=== PATIENT | male | born 2000 | race African-American/Black ===

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

== ENCOUNTER 2023-02-14 08:00 | Outpatient (CLI) | payer OTHER ==
--- NOTE | 2023-02-15 00:19 | XRAY Report ---
PROCEDURE: Ankle 3 View RT INDICATIONS: RIGHT ANKLE FRACTURE TECHNIQUE: 3 views of the ankle were acquired. COMPARISON: X-ray right ankle, 02/04/2023. FINDINGS: Bones: There is a fracture of the distal fibula, demonstrating increased displacement on the lateral view. Widening of distal tibiofibular syndesmosis. Ankle mortise is widened medially. No suspiciou s bony lesions. Soft tissues: Small tibiotalar joint effusion. Achilles tendon appears normal. IMPRESSION: 1. Distal fibular fracture with increased displacement. 2. Suspect distal tibiofibular syndesmotic tear. 3. Possible small fracture fragment arising from the lateral aspect of the distal tibia. Reviewed by: Brenda Ott MD on 02/15/2023 12:17 AM PDT Approved by: Brenda Ott MD on 02/15/2023 12:17 AM PDT Station ID: [id number]
--- NOTE | 2023-02-15 00:19 | XRAY Report ---
PROCEDURE: Tib/Fib RT INDICATIONS: RIGHT ANKLE FRACTURE TECHNIQUE: 2 views of the tibia and fibula were acquired. COMPARISON: X-ray right ankle, 02/04/2023. FINDINGS: Bones: There is a spiral fracture in the distal fibular. There is increase in displacement compared to last exam. No suspicious bony lesions. Soft tissues: No suspicious soft tissue calcifications or masses. IMPRESSION: 1. Increased displacement in distal fibular fracture. Reviewed by: Brenda Ott MD on 02/15/2023 12:18 AM PDT Approved by: Brenda Ott MD on 02/15/2023 12:18 AM PDT Station ID: [id number]
== END 2023-02-14 23:59 | disposition home or self-care (01) ==
LOC: DI.WOS 08:00
PROVIDERS: ATTEND Orthopaedic Surgery
DX: S82.831A Other fracture of upper and lower end of right fibula, initial encounter for closed fracture (principal)

== ENCOUNTER 2023-02-18 13:11 | Outpatient (CLI) | payer OTHER ==
--- NOTE | 2023-02-19 18:51 | CT Report ---
PROCEDURE: LOWER EXTREMITY WO - RT INDICATIONS: DISPLACED FRACTURE OF RIGHT FIBULA TECHNIQUE: Noncontrast 3-mm axial sections acquired from the distal tibial shaft to the talar dome, with coronal and sagittal reformats. For radiation dose reduction, the following was used: automated exposure c ontrol, adjustment of mA and/or kV according to patient size. COMPARISON: Ankle radiograph dated 02/14/2023. FINDINGS: Image quality: Excellent. Bones: Acute slightly comminuted oblique fracture involving distal fibular shaft extending to the le ger of tibiotalar joint is seen with dorsal displacement and up to 5 mm diastases at the distal fibul ar shaft fracture site. There is acute fracture involving posterior aspect of lateral malleolus poste rior lateral displacement of the fractured fragment best seen on series 2 image 162 and series 5 imag e 49. Small corticated calcifications are noted over dorsal aspect of tibiotalar joint suggestive of old avulsion injuries. No other fracture or dislocation is seen. Lateral tilting of talar dome in rel ation to distal tibial plafond is noted. Markedly widened medial ankle mortise is seen. Soft tissues: Significant soft tissue swelling and edema surrounding distal lower leg and right ankl e is seen. There is moderate amount of tibiotalar joint effusion, no definite calcified intra-articul ar loose bodies. Widened distal tibiofibular syndesmosis is seen and measures up to 5 mm in distance. No gross full-thickness extensor, flexor, peroneus tendon rupture. No full-thickness Achilles tendon rupture. Visualized plantar fascia is within normal limits. Impression: 1. Acute comminuted and slightly displaced distal fibular shaft fracture as above. 2. Acute slightly displaced fracture involving posterior medial cortex of medial malleolus. 3. Suggestion of old avulsion injuries involving dorsal aspect of talonavicular joint. No definite os teochondral injuries of talar dome. 4. Soft tissue swelling and edema surrounding distal lower leg and ankle joint. Moderate joint effusi on, no definite calcified loose bodies. 5. Lateral tilting of talar dome in relation to the distal tibial plafond with widened medial ankle m ortise and widened distal tibiofibular syndesmosis suggestive of ankle ligament injuries. 6. No gross full-thickness ankle tendon rupture. Reviewed by: Jed Hua MD on 02/19/2023 6:50 PM PDT Approved by: Jed Hua MD on 02/19/2023 6:50 PM PDT Station ID: [id number]
== END 2023-02-18 13:12 | disposition home or self-care (01) ==
LOC: DI 13:11
PROVIDERS: ATTEND Physician Assistant Surgical
DX: S82.61XA Displaced fracture of lateral malleolus of right fibula, initial encounter for closed fracture (principal); S82.831A Other fracture of upper and lower end of right fibula, initial encounter for closed fracture; S82.51XA Displaced fracture of medial malleolus of right tibia, initial encounter for closed fracture; R93.6 Abnormal findings on diagnostic imaging of limbs; R93.89 Abnormal findings on diagnostic imaging of other specified body structures; M25.471 Effusion, right ankle

== ENCOUNTER 2023-02-20 07:56 | Day surgery (SDC) | payer OTHER ==
[2023-02-20] MEDS ORDERED: ACETAMINOPHEN 500 MG TABLET PO ONE (08:06)
[2023-02-20] MEDS ORDERED: CELECOXIB 100 MG CAPSULE PO ONE (08:06)
[2023-02-20] MEDS ORDERED: ceFAZolin 2 GM VIAL ONE (08:06)
[2023-02-20] MEDS ORDERED: LACTATED RINGERS 1,000 ML IV ONE ×2 (08:40→13:54)
--- NOTE | 2023-02-20 08:50 | ANESTHESIA ---
Pre-Anesthesia VS, & Labs - Diagnosis displaced right ankle fracture - Procedure ORIF right ankle Vital Signs: Temp Pulse Resp BP Pulse Ox O2 Flow Rate 36 C L 72 14 139/51 H 100 02/20/23 08:19 02/20/23 08:19 02/20/23 08:19 02/20/23 08:19 02/20/23 08:19 Height: 5 ft 8 in Weight (kg): 78 kg Body Mass Index: 26.1 BMI Classification: Overweight - NPO >8 hours Home Medications and Allergies Allergies/Adverse Reactions: Allergies Allergy/AdvReac Type Severity Reaction Status Date / Time No Known Drug Allergies Allergy Verified 02/04/23 21:14 Anes History & Medical History - Anesthetic History Anesthesia Complications: reports: No previous complications - Medical History Cardiovascular: reports: Hypertension Pulmonary: reports: Asthma Gastrointestinal: reports: None Urinary: reports: None Musculoskeletal: reports: None Endocrine/Autoimmune: reports: None Skin: reports: None Smoking Status: Never smoker History of Cancer?: No Exam General: Alert, Oriented x3 Dental: WNL Mouth Opening: Greater than 4 Fingerbreadths Neck Mobility: Normal Mallampati classification: II Thyromental Distance: greater than 6 cm Respiratory: Lungs clear Cardiovascular: Regular rate Plan Anesthesia Type: General, Popliteal Block Consent for Procedure(s) Verified and Reviewed: Yes Code Status: Attempt Resuscitation ASA classification: 2-Mild systemic disease Is this case an emergency?: No
[2023-02-20] MEDS ORDERED: ePHEDrine 50 MG/ML VIAL IVP PRN (08:51)
[2023-02-20] MEDS ORDERED: NALOXONE 0.4 MG/ML VIAL IVP PRN (08:51)
[2023-02-20] MEDS ORDERED: HYDROmorphone 0.5 MG/0.5 ML SYRINGE IVP PRN (08:51)
[2023-02-20] MEDS ORDERED: ONDANSETRON 4 MG/2 ML VIAL IVP PRN ×2 (08:51→13:54)
[2023-02-20] MEDS ORDERED: MORPHINE 2 MG/ML CARPUJECT IVP PRN (08:51)
[2023-02-20] MEDS ORDERED: METOCLOPRAMIDE 10 MG/2 ML VIAL IVP PRN (08:51)
[2023-02-20] MEDS ORDERED: fentaNYL 100 MCG/2 ML VIAL IVP PRN (08:51)
[2023-02-20] MEDS ORDERED: ATROPINE ABBOJECT 1 MG/10 ML SYRINGE IVP PRN (08:51)
[2023-02-20] MEDS ORDERED: LACTATED RINGERS 1,000 ML IV SCH (09:00)
[2023-02-20] MEDS ORDERED: MIDAZOLAM 2 MG/2 ML VIAL ONE (09:15)
[2023-02-20] MEDS ORDERED: fentaNYL 100 MCG/2 ML VIAL ONE ×2 (09:15→13:29)
[2023-02-20] MEDS ORDERED: ROPIVACAINE 0.5% PF 20 ML VIAL ONE ×2 (09:17→10:44)
[2023-02-20] MEDS ORDERED: DEXAMETHASONE 4 MG/ML VIAL ONE (09:18)
[2023-02-20] MEDS ORDERED: PROPOFOL 200 MG/20 ML VIAL IVP ONE (09:44)
[2023-02-20] MEDS ORDERED: ONDANSETRON 4 MG/2 ML VIAL ONE (09:47)
[2023-02-20] MEDS ORDERED: VANCOMYCIN 1 GM VIAL ONE (11:03)
[2023-02-20] MEDS ORDERED: VANCOMYCIN 1 GM VIAL MC ONE (13:39)
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
[2023-02-20] MEDS ORDERED: oxyCODONE 5 MG TABLET PO PRN (13:54)
[2023-02-20] MEDS ORDERED: ACETAMINOPHEN 500 MG TABLET PO PRN (14:30)
[2023-02-20 14:55] VITALS: BP 115/51
[2023-02-20] MEDS ORDERED: CELECOXIB 100 MG CAPSULE PO PRN (16:30)
--- NOTE | 2023-02-20 18:19 | ANESTHESIA POST OP EVALUATION ---
Anesthesia Post Eval - Post Anesthesia Eval Vitals: Last Vital Signs Temp 36.1 C L 02/20/23 14:47 Pulse 96 02/20/23 14:47 Resp 16 02/20/23 14:47 BP 115/51 L 02/20/23 14:47 Pulse Ox 100 02/20/23 14:47 O2 Flow Rate CV Function Including HR & BP: Stable Pain Control: Satisfactory Nausea & Vomiting: Negative Mental Status: Baseline Respiratory Status: Airway Patent Hydration Status: Satisfactory Anesthesia Complications: None
--- NOTE | 2023-02-21 08:35 | XRAY Report ---
PROCEDURE: OR C-Arm Procedure INDICATIONS: ORIF ANKLE, Right FLUORO TIME: 0:1 MIN TECHNIQUE: 2 spot fluoroscopic intraoperative images. COMPARISON: Right ankle radiographs 02/14/2023 FINDINGS: Postsurgical changes are seen from internal fixation of the previously seen distal fibular fracture w ith a lateral plate and screw construct. Osseous alignment has improved. IMPRESSION: Status post internal fixation of the distal fibular fracture with improved alignment. Reviewed by: Clint Arnold MD on 02/21/2023 8:34 AM PDT Approved by: Clint Arnold MD on 02/21/2023 8:34 AM PDT Station ID: [id number]
== END 2023-02-20 07:57 | disposition home or self-care (01) ==
LOC: SDS 07:56
PROVIDERS: ATTEND Orthopaedic Surgery
DX: S82.61XA Displaced fracture of lateral malleolus of right fibula, initial encounter for closed fracture (principal); S93.421A Sprain of deltoid ligament of right ankle, initial encounter; W19.XXXA Unspecified fall, initial encounter; Y93.73 Activity, racquet and hand sports; J45.909 Unspecified asthma, uncomplicated; I10 Essential (primary) hypertension
CPT/HCPCS: 27792; A9270; J2795; J3370; J7120

== ENCOUNTER 2023-04-01 08:00 | Outpatient (CLI) | payer OTHER ==
--- NOTE | 2023-04-01 13:33 | XRAY Report ---
PROCEDURE: Ankle 3 View RT INDICATIONS: RIGHT ANKLE ORIF TECHNIQUE: 3 views of the ankle were acquired. COMPARISON: Right ankle radiographs 02/14/2023 FINDINGS: Bones: Postsurgical changes from distal fibula fixation with a plate and multiple screws. Hardware a ppears intact. Interval improvement in previously demonstrated distal fibular fracture alignment. Fra cture plane remains visible. Soft tissues: No tibiotalar joint effusion. IMPRESSION: Postsurgical changes of the distal fibula. Reviewed by: Clint Peck MD on 04/01/2023 1:32 PM PDT Approved by: Clint Peck MD on 04/01/2023 1:32 PM PDT Station ID: [id number]
== END 2023-04-01 23:59 | disposition home or self-care (01) ==
LOC: DI.WOS 08:00
PROVIDERS: ATTEND Orthopaedic Surgery
DX: S82.61XD Displaced fracture of lateral malleolus of right fibula, subsequent encounter for closed fracture with routine healing (principal)

== ENCOUNTER 2023-09-16 18:06 | Outpatient (CLI) | payer OTHER | END 2023-09-16 23:59 | disposition EMS.NT | LOC: EMS 18:06 | DX: S61.216A Laceration without foreign body of right little finger without damage to nail, initial encounter (principal); S61.411A Laceration without foreign body of right hand, initial encounter; X78.0XXA Intentional self-harm by sharp glass, initial encounter; Y92.019 Unspecified place in single-family (private) house as the place of occurrence of the external cause ==

== ENCOUNTER 2023-09-16 18:58 | Emergency (ER) | payer OTHER ==
[2023-09-16 19:13] VITALS: O2SAT 100
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
[2023-09-16] MEDS: TETANUS/DIPHTHERIA/PERTUSSIS 0.5 ML SYRINGE IM ONE (19:35)
[2023-09-16 19:41] VITALS: BP 155/90
== END 2023-09-16 19:40 | disposition home or self-care (01) ==
LOC: ED 18:58
DX: S61.511A Laceration without foreign body of right wrist, initial encounter (principal); S60.511A Abrasion of right hand, initial encounter; W22.8XXA Striking against or struck by other objects, initial encounter; W25.XXXA Contact with sharp glass, initial encounter; I10 Essential (primary) hypertension; Z23 Encounter for immunization
CPT/HCPCS: 12001; 90471; 99281; 99283